=== PATIENT | male | born 1965 | race Caucasian/White ===

== ENCOUNTER 2016-06-17 08:24 | Day surgery (SDC) | payer OTHER ==
[~2016-06-17] VITALS: Ht 172.7 cm; Wt 87.5 kg
[2016-06-17] MEDS ORDERED: LACTATED RINGERS 1,000 ML IV SCH (09:30)
[2016-06-17] MEDS ORDERED: PANT40TA4 PO (09:51)
[2016-06-17] MEDS ORDERED: GEMF600T3 PO (09:51)
[2016-06-17] MEDS ORDERED: BUPIVACAINE HCL 0.5% (5MG/ML) 50ML ONE (10:30)
[2016-06-17] MEDS ORDERED: LIDOCAINE HCL 1% 20ML VIAL (Pyxis) INJ ONE ×2 (10:33→10:36)
[2016-06-17] MEDS ORDERED: FENTANYL CITRATE/PF 50MCG/ML 2ML VIAL ONE ×2 (10:33→11:08)
[2016-06-17] MEDS ORDERED: PROPOFOL 200MG/20ML VIAL IV ONE (10:33)
[2016-06-17] MEDS ORDERED: MIDAZOLAM HCL 2 MG/2 ML VIAL ONE (10:33)
[2016-06-17] MEDS ORDERED: CEFAZOLIN SODIUM 1000MG/VIAL ONE (10:34)
[2016-06-17] MEDS ORDERED: HYDROMORPHONE HCL/PF 2MG/ML CPJ IV PRN (11:30)
[2016-06-17] MEDS ORDERED: ONDANSETRON HCL 4MG/2ML VIAL IV PRN (11:30)
[2016-06-17] MEDS ORDERED: BACITRACIN ZINC 15GM TUBE TOP ONE (11:54)
== END 2016-06-17 14:30 | disposition home or self-care (01) ==
LOC: OR 08:24
PROVIDERS: ATTEND Urology
DX: N43.41 Spermatocele of epididymis, single (principal); K21.9 Gastro-esophageal reflux disease without esophagitis
CPT/HCPCS: 54840; 88304; J0690; J2250; J2405; J3010; J3490; J7120; J2704